=== PATIENT | female | born 1970 | race Caucasian/White ===

== ENCOUNTER 2018-03-11 04:53 | Day surgery (SDC) | payer OTHER ==
[2018-03-10 09:45] VITALS: BMI 34.9
--- NOTE | 2018-03-11 10:35 | HP ---
History & Physical Update - History History: No Change - Physical Physical: No Change - Assessment Assessment: No Change - Plan Plan: No Change Currently as noted:: 47yo female with Menorrhagia admitted for endometrial ablation and poss D&C
[2018-03-11] MEDS ORDERED: MIDAZOLAM HCL 2 MG/2 ML SINGLE DOSE VIAL ONE (10:37)
[2018-03-11] MEDS ORDERED: PROPOFOL 20 ML ONE ×2 (10:37)
[2018-03-11] MEDS ORDERED: LIDOCAINE HCL/PF 2% SDV 5ML VIAL ONE (10:37)
[2018-03-11] MEDS ORDERED: ceFAZolin SODIUM 1 GM VIAL ONE (10:52)
[2018-03-11] MEDS ORDERED: DEXAMETHASONE SOD PHOSPHATE 4 MG/1 ML VIAL ONE (11:00)
[2018-03-11] MEDS ORDERED: ONDANSETRON 4 MG/2 ML VIAL IVPUSH PRN (11:40)
[2018-03-11] MEDS ORDERED: ACETAMINOPHEN 1000 MG/100 ML VIAL (NON FORMULARY) IVPB ONE (11:41)
[2018-03-11] MEDS ORDERED: LACTATED RINGERS SOLUTION 1,000 ML IV SCH (11:45)
--- NOTE | 2018-03-11 11:49 | OP ---
Operative Note - Note: Operative Date: 03/11/18 Pre-Operative Diagnosis: Menorrhagia Operation: Endometrial ablation Findings: Normal uterine cavity, no lesions Post-Operative Diagnosis: Same as Pre-op Surgeon: Augie Cohen Anesthesiologist/[employer] OPERATOR: Leslie Smith Anesthesia: General Estimated Blood Loss (mls): 0 Blood Volume Replaced (mls): 0 Fluid Volume Replaced (mls): 400 Operative Report Dictated: Yes
[2018-03-11] MEDS ORDERED: oxyCODONE HCL 5 MG TABLET ONE ×2 (13:42→16:11)
[2018-03-11] MEDS: oxyCODONE HCL 5 MG TABLET PO PRN ×2 (13:43→16:17)
[2018-03-11] MEDS ORDERED: oxyCODONE HCL 5 MG TABLET PO ONE (16:20)
[2018-03-11 19:43] VITALS: BP 118/66; PULSE 63; TEMP 97.9
--- NOTE | 2018-03-14 23:05 | OP ---
DATE OF OPERATION: 03/11/2018 PREOPERATIVE DIAGNOSIS: Menorrhagia. POSTOPERATIVE DIAGNOSIS: Menorrhagia. PROCEDURE: Global endometrial ablation using HTA Genesys device, hysteroscopy. PATHOLOGY: None. SURGEON: Gale Fowler M.D. ANESTHESIOLOGIST: Leslie Smith MD ANESTHESIA: General. COMPLICATIONS: None. ESTIMATED BLOOD LOSS: 0 mL. INTRAVENOUS FLUIDS: 400 mL. COMPLICATIONS: None. FINDINGS: Examination under anesthesia revealed a small uterus with no pelvic or adnexal masses. Hysteroscopy revealed a normal uterine cavity with same endometrial lining, no lesions or masses were noted within the uterine cavity. The entire endometrial ablation procedure was conducted under direct visualization and without complications. DESCRIPTION OF PROCEDURE: The patient was met preoperatively. Risks, benefits, and alternatives of surgery were discussed in details. All questions were answered. The patient was then brought to the OR with the IV running. She was placed in a surgical table in supine position. The general anesthesia was then achieved without difficulty. The patient was placed in a dorsal lithotomy position using adjustable Andi stirrups. She was examined under anesthesia with the findings as described above. The patient was then prepped and draped in the usual sterile fashion. A timeout procedure was conducted as per standard protocol. A weighted speculum was introduced inside the vagina with good visualization of the cervix. The cervix was grasped with a single-toothed tenaculum. The cervical os was dilated to accommodate a size 25 Gutierrez dilator. A Genesys HTA hysteroscope was then advanced into the uterine cavity. The uterine cavity appeared to be normal with thin endometrial lining. No lesions or masses were observed. After the diagnostic hysteroscopy was completed and a good fluid seal was confirmed, the endometrial ablation process was started. The entire endometrial ablation was conducted under direct visualization. No complications were noted during the procedure. Once the ablation cycle was completed, the hysteroscope was removed from the patient. Good hemostasis was observed. Sponge, lap, and instrument counts were correct. The patient was returned to supine position. She was then transferred to recovery room awake and in stable condition. GALE FOWLER M.D. [place]/[id number]
== END 2018-03-11 19:20 | disposition home or self-care (01) ==
LOC: JASU-SURG 04:53
PROVIDERS: ATTEND Obstetrics & Gynecology
PROC: 0U5B8ZZ Destruction of Endometrium, Via Natural or Artificial Opening Endoscopic (ICD-10-PCS; principal; 2018-03-11 09:00)
DX: N92.0 Excessive and frequent menstruation with regular cycle (principal)
CPT/HCPCS: 84703; 94760; J0131